=== PATIENT | male | born 1960 | race Caucasian/White ===

== ENCOUNTER 2021-04-07 23:17 | Inpatient (IN) | payer OTHER ==
[~2021-04-07] VITALS: Ht 180.3 cm; Wt 64.9 kg
[2021-04-07] MEDS ORDERED: HEPARIN SODIUM (PORCINE) 5000 UNITS/ML 1ML VIAL IV ONE (23:45)
[2021-04-07] MEDS ORDERED: NITROGLYCERIN 0.4 MG SL TAB SL ONE (23:45)
[2021-04-07 23:51] LABS: Basophils # (auto) 0.1 10 ^3/uL (0-0.2); Basophils % (auto) 0.9 % (0.0-2.0); Eosinophils # (auto) 0.1 10 ^3/uL (0-0.8); Eosinophils % (auto) 0.6 % (0.0-7.0); Hematocrit 44.5 % (41.0-53.0); Hemoglobin 14.9 g/dL (13.5-17.5); Lymphocytes # (auto) 2.7 10 ^3/uL (0.4-5.4); Lymphocytes % (auto) 18.2 % (10.0-50.0); Mean Corpuscular Hemoglobin 29.9 pg (28.0-32.0); Mean Corpuscular Hgb Conc. 33.6 g/dL (32.0-36.0); Monocytes % (auto) 6.4 % (0.0-12.0); Neutrophils % (auto) 73.9 % (37.0-80.0); Red Cell Distribution Width 14.2 % (11.8-14.3); White Blood Cell 14.9 10^3/uL (4.4-10.8)
[2021-04-08] VITALS (11 sets, daily range): BP systolic 87–105; BP diastolic 54–75
[2021-04-08] MEDS ORDERED: fentaNYL CITRATE 100 MCG/2 ML VL ONE (00:07)
[2021-04-08] MEDS ORDERED: HEPARIN SODIUM (PORCINE) 5000 UNITS/ML 1ML VIAL ONE (00:07)
[2021-04-08] MEDS ORDERED: SODIUM CHL 0.9% 50 ML ONE (00:07)
[2021-04-08] MEDS ORDERED: VERAPAMIL 2.5MG/ML INJ 2ML VIAL IV ONE (00:07)
[2021-04-08] MEDS ORDERED: MIDAZOLAM HCL 2MG/2ML 2ml VIAL (1mg/ml) ONE (00:07)
[2021-04-08] MEDS ORDERED: ANGIOMAX 250 MG VIAL IV ONE (00:07)
[2021-04-08] MEDS ORDERED: IODIXANOL 320MG/ML 100ML BTL IV ONE (00:07)
[2021-04-08] MEDS ORDERED: LIDOCAINE 2%HCL (LOCAL ANESTH.) INJ 20ML MDV ONE (00:08)
[2021-04-08 00:10] LABS: Albumin 3.6 g/dL (3.4-5.0); Magnesium 2.8 mg/dL (1.6-2.6); Potassium 4.2 mmol/L (3.5-5.1)
[2021-04-08 00:13] LABS: INR 1.13 (0.9-1.15)
[2021-04-08 00:18] LABS: BUN/Creatinine Ratio 18.6; Bilirubin, Total 0.3 mg/dL (0.2-1.0); Total Protein 7.2 g/dL (6.4-8.2)
[2021-04-08] MEDS ORDERED: ATROPINE SULF 1 MG/10ml SYR ONE (00:51)
[2021-04-08] MEDS ORDERED: TICAGRELOR 90 MG TAB ONE (00:54)
[2021-04-08] MEDS ORDERED: MORPHINE SULFATE 4 MG/ML SYR/VIAL IV PRN (02:00)
[2021-04-08] MEDS ORDERED: SOD CHL 0.45% 1,000 ML IV ONE (02:00)
[2021-04-08] MEDS ORDERED: NITROGLYCERIN 0.4 MG SL TAB SL PRN ×2 (02:00)
[2021-04-08] MEDS ORDERED: ACETAMINOPHEN 500 MG TAB PO PRN (02:00)
[2021-04-08] MEDS ORDERED: HYDROcodone-ACET 5/325MG TAB PO PRN (02:00)
[2021-04-08] MEDS ORDERED: MORPHINE SULFATE INJECTION 2 MG/ML SYRG IV PRN ×2 (02:00)
[2021-04-08] MEDS ORDERED: ALPRAZolam 0.25 MG TAB PO PRN (02:00)
[2021-04-08] MEDS ORDERED: IBU600T PO (05:07)
[2021-04-08] MEDS ORDERED: SAW160TA PO (05:07)
[2021-04-08] MEDS ORDERED: OMEG300C7 OR ×2 (05:09→05:10)
[2021-04-08] MEDS: MAGNESIUM SULFATE 1GM/100ML 100 ML IV SCH ×2 (08:00→10:52)
[2021-04-08 09:32] LABS: Basophils # (auto) 0.1 10 ^3/uL (0-0.2); Basophils % (auto) 0.8 % (0.0-2.0); Eosinophils # (auto) 0 10 ^3/uL (0-0.8); Eosinophils % (auto) 0.4 % (0.0-7.0); Hematocrit 42.5 % (41.0-53.0); Hemoglobin 14.2 g/dL (13.5-17.5); Mean Corpuscular Hemoglobin 29.7 pg (28.0-32.0); Mean Corpuscular Hgb Conc. 33.4 g/dL (32.0-36.0); Mean Corpuscular Volume 88.8 fL (80.0-100.0); Monocytes # (auto) 0.9 10 ^3/uL (0-1.3); Neutrophils # (auto) 8.6 10 ^3/uL (1.6-8.6); Neutrophils % (auto) 73.8 % (37.0-80.0); Nucleated Red Blood Cells % 0.1 %; Red Blood Cells 4.79 10^6/uL (4.5-5.90); Red Cell Distribution Width 13.8 % (11.8-14.3); White Blood Cell 11.6 10^3/uL (4.4-10.8)
[2021-04-08 09:51] LABS: Potassium 4.2 mmol/L (3.5-5.1)
[2021-04-08] MEDS: CARVEDILOL 3.125 MG TAB PO SCH ×2 (10:00→22:00)
[2021-04-08] MEDS ORDERED: SACUBITRIL-VALSARTAN 24mg/26mg TAB PO SCH (10:00)
[2021-04-08] MEDS: NICOTINE 14 MG/24HR TOPICAL PATCH TD SCH (10:00)
[2021-04-08] MEDS ORDERED: ATORVASTATIN 20 MG TAB PO SCH (10:00)
[2021-04-08 10:05] LABS: Albumin 2.9 g/dL (3.4-5.0); BUN/Creatinine Ratio 18.1; Bilirubin, Total 0.6 mg/dL (0.2-1.0); Calcium 8.5 mg/dL (8.5-10.1); Total Protein 5.7 g/dL (6.4-8.2)
[2021-04-08 10:37] LABS: Cholesterol 161 mg/dL (< 200); HDL Cholesterol 51 mg/dL (40-59); LDL Cholesterol 102 mg/dL (< 100); Triglycerides 76 mg/dL (< 150)
[2021-04-08] MEDS: ASPirin 81 mg TAB PO SCH (10:39)
[2021-04-08] MEDS: PANTOPRAZOLE 40 MG TAB PO SCH (10:39)
[2021-04-08] MEDS: TICAGRELOR 90 MG TAB PO SCH ×2 (10:39→22:50)
[2021-04-08] MEDS: SACUBITRIL-VALSARTAN 24mg/26mg TAB PO SCH ×2 (10:40→22:00)
[2021-04-08] MEDS ORDERED: MAGNESIUM SULFATE 1GM/100ML 100 ML IV ONE (12:39)
[2021-04-09 05:15] VITALS: BP 105/56
[2021-04-09 09:00] VITALS: BP 111/77
[2021-04-09] MEDS: PANTOPRAZOLE 40 MG TAB PO SCH (10:00)
[2021-04-09] MEDS ORDERED: ZETIA 10 MG PO SCH (10:00)
[2021-04-09] MEDS: SACUBITRIL-VALSARTAN 24mg/26mg TAB PO SCH ×2 (10:00→22:00)
[2021-04-09] MEDS: NICOTINE 14 MG/24HR TOPICAL PATCH TD SCH (10:00)
[2021-04-09] MEDS: TICAGRELOR 90 MG TAB PO SCH ×2 (10:00→22:23)
[2021-04-09] MEDS: ASPirin 81 mg TAB PO SCH (10:00)
[2021-04-09] MEDS: CARVEDILOL 3.125 MG TAB PO SCH ×2 (10:00→22:28)
[2021-04-09 12:30] VITALS: BP 111/80
[2021-04-09 17:00] VITALS: BP 111/81
[2021-04-09 22:00] VITALS: BP 109/74
[2021-04-10 05:00] VITALS: BP 118/84
[2021-04-10 09:00] VITALS: BP 122/84
[2021-04-10] MEDS: ASPirin 81 mg TAB PO SCH (09:00)
[2021-04-10] MEDS: TICAGRELOR 90 MG TAB PO SCH ×2 (09:00→22:06)
[2021-04-10] MEDS: CARVEDILOL 3.125 MG TAB PO SCH ×2 (09:01→22:06)
[2021-04-10] MEDS: SACUBITRIL-VALSARTAN 24mg/26mg TAB PO SCH ×2 (09:01→22:00)
[2021-04-10] MEDS: PANTOPRAZOLE 40 MG TAB PO SCH (09:02)
[2021-04-10] MEDS: NICOTINE 14 MG/24HR TOPICAL PATCH TD SCH (09:02)
[2021-04-10 13:00] VITALS: BP 111/80
[2021-04-10] MEDS ORDERED: NITR0.4S29 SL (13:24)
[2021-04-10] MEDS ORDERED: CAR3125T PO (13:24)
[2021-04-10] MEDS ORDERED: SACU1TAB PO (13:24)
[2021-04-10] MEDS ORDERED: NICO14DI9 TD (13:24)
[2021-04-10] MEDS ORDERED: TICA90TA PO (13:24)
[2021-04-10] MEDS ORDERED: PANT40T PO (13:24)
[2021-04-10] MEDS ORDERED: ASPI1TAB20 PO (13:24)
[2021-04-10] MEDS ORDERED: ALIR75IN2 SC (13:26)
[2021-04-10] MEDS ORDERED: EZET10TA22 PO (13:26)
[2021-04-10 17:00] VITALS: BP 107/75
[2021-04-10 22:00] VITALS: BP 108/79
[2021-04-11 05:00] VITALS: BP 103/79
[2021-04-11 09:16] VITALS: BP 112/81
[2021-04-11] MEDS: SACUBITRIL-VALSARTAN 24mg/26mg TAB PO SCH (10:00)
[2021-04-11] MEDS: CARVEDILOL 3.125 MG TAB PO SCH (10:00)
[2021-04-11] MEDS: TICAGRELOR 90 MG TAB PO SCH (10:00)
[2021-04-11] MEDS: ASPirin 81 mg TAB PO SCH (10:00)
[2021-04-11] MEDS: NICOTINE 14 MG/24HR TOPICAL PATCH TD SCH (10:00)
[2021-04-11] MEDS: PANTOPRAZOLE 40 MG TAB PO SCH (10:00)
[2021-04-11 13:20] VITALS: BP 120/71
[2021-04-11] MEDS ORDERED: CLOP75TA70 PO (13:25)
[2021-04-11] MEDS ORDERED: OMEG300C7 OR (13:38)
[2021-04-11] MEDS ORDERED: CLOPIDOGREL BISULFATE 75 MG TAB PO ONE (13:45)
[2021-04-11 16:37] VITALS: BP 119/84
[2021-04-11 19:50] VITALS: BP 119/84
[2021-04-12] MEDS ORDERED: ZETIA 10 MG PO SCH (10:00)
== END 2021-04-11 20:30 | disposition home or self-care (01) | DRG 246 ==
LOC: ER 23:17 → EDBD 23:17 → TELE-WESTW 04-08 01:50
PROVIDERS: ADMIT Internal Medicine; ATTEND Internal Medicine
PROC: 027136Z Dilation of Coronary Artery, Two Arteries with Three Drug-eluting Intraluminal Devices, Percutaneous Approach (ICD-10-PCS; principal; 2021-04-08)
PROC: 4A023N7 Measurement of Cardiac Sampling and Pressure, Left Heart, Percutaneous Approach (ICD-10-PCS; 2021-04-08)
PROC: B240ZZ3 Ultrasonography of Single Coronary Artery, Intravascular (ICD-10-PCS; 2021-04-08)
PROC: B2111ZZ Fluoroscopy of Multiple Coronary Arteries using Low Osmolar Contrast (ICD-10-PCS; 2021-04-08)
PROC: B2151ZZ Fluoroscopy of Left Heart using Low Osmolar Contrast (ICD-10-PCS; 2021-04-08)
DX: I21.3 ST elevation (STEMI) myocardial infarction of unspecified site (principal); I50.21 Acute systolic (congestive) heart failure; I47.2 Ventricular tachycardia; E78.5 Hyperlipidemia, unspecified; F12.90 Cannabis use, unspecified, uncomplicated; F17.210 Nicotine dependence, cigarettes, uncomplicated; I25.5 Ischemic cardiomyopathy; I11.0 Hypertensive heart disease with heart failure; Z20.822 Contact with and (suspected) exposure to COVID-19; J44.9 Chronic obstructive pulmonary disease, unspecified; Z79.02 Long term (current) use of antithrombotics/antiplatelets; Z82.0 Family history of epilepsy and other diseases of the nervous system; Z82.49 Family history of ischemic heart disease and other diseases of the circulatory system; Z88.8 Allergy status to other drugs, medicaments and biological substances
CPT/HCPCS: 36415; 71045; 80053; 80061; 82565; 83036; 83735; 83880; 84484; 85025; 85610; 86850; 86900; 86901; 87426; 93005; 93306; 99152; 99153; 99291; C1874; C1887; G0378; J2250; Q9967

== ENCOUNTER 2021-04-21 03:52 | Emergency (ER) | payer OTHER ==
[~2021-04-21] VITALS: Ht 182.9 cm; Wt 68.0 kg
[~2021-04-21 03:52] MED LIST: ASPI1TAB20 PO; CAR3125T PO; CLOP75TA70 PO; EZET10TA22 PO; NICO14DI9 TD; NITR0.4S29 SL; OMEG300C7 OR; PANT40T PO; SACU1TAB PO; SAW160TA PO
[2021-04-21] MEDS ORDERED: SODIUM CHLORIDE 0.9% 1,000 ML IV ONE (04:00)
[2021-04-21 05:11] LABS: Basophils # (auto) 0.1 10 ^3/uL (0-0.2); Basophils % (auto) 1.2 % (0.0-2.0); Eosinophils # (auto) 0.2 10 ^3/uL (0-0.8); Eosinophils % (auto) 1.8 % (0.0-7.0); Hematocrit 45.3 % (41.0-53.0); Hemoglobin 15.1 g/dL (13.5-17.5); Lymphocytes # (auto) 2.8 10 ^3/uL (0.4-5.4); Lymphocytes % (auto) 34.4 % (10.0-50.0); Mean Corpuscular Hemoglobin 29.5 pg (28.0-32.0); Mean Corpuscular Hgb Conc. 33.3 g/dL (32.0-36.0); Mean Corpuscular Volume 88.5 fL (80.0-100.0); Monocytes # (auto) 0.7 10 ^3/uL (0-1.3); Monocytes % (auto) 8.6 % (0.0-12.0); Neutrophils # (auto) 4.4 10 ^3/uL (1.6-8.6); Nucleated Red Blood Cells % 0.1 %; Red Blood Cells 5.12 10^6/uL (4.5-5.90); Red Cell Distribution Width 13.8 % (11.8-14.3); White Blood Cell 8.2 10^3/uL (4.4-10.8)
[2021-04-21 05:14] LABS: INR 1.11 (0.9-1.15); Partial Thromboplastin Time 24.9 sec (23.6-33.0)
[2021-04-21 05:26] LABS: Albumin 3.2 g/dL (3.4-5.0); Calcium 8.5 mg/dL (8.5-10.1); Potassium 4.6 mmol/L (3.5-5.1)
[2021-04-21 05:34] LABS: BUN/Creatinine Ratio 17.6; Bilirubin, Total 0.4 mg/dL (0.2-1.0); Total Protein 6.4 g/dL (6.4-8.2)
[2021-04-21 08:56] VITALS: BP 124/87
== END 2021-04-21 13:00 | disposition home or self-care (01) ==
LOC: EDBD 03:52 → ER 03:52
DX: I95.9 Hypotension, unspecified (principal); F17.210 Nicotine dependence, cigarettes, uncomplicated; F12.10 Cannabis abuse, uncomplicated; Z88.6 Allergy status to analgesic agent; Z88.8 Allergy status to other drugs, medicaments and biological substances; Z20.822 Contact with and (suspected) exposure to COVID-19
CPT/HCPCS: 36415; 70450; 72125; 80053; 84484; 85025; 85610; 85730; 87426; 93005

== ENCOUNTER → 2021-07-07 | Outpatient (CLI) | payer MEDICAID ==
[2021-07-07 10:57] LABS: Basophils # (auto) 0.1 10 ^3/uL (0-0.2); Basophils % (auto) 1.6 % (0.0-2.0); Eosinophils # (auto) 0.1 10 ^3/uL (0-0.8); Eosinophils % (auto) 2.1 % (0.0-7.0); Hematocrit 44.1 % (41.0-53.0); Hemoglobin 15.2 g/dL (13.5-17.5); Lymphocytes # (auto) 2.4 10 ^3/uL (0.4-5.4); Lymphocytes % (auto) 36.3 % (10.0-50.0); Mean Corpuscular Hemoglobin 30.1 pg (28.0-32.0); Mean Corpuscular Hgb Conc. 34.5 g/dL (32.0-36.0); Mean Corpuscular Volume 87.2 fL (80.0-100.0); Monocytes # (auto) 0.6 10 ^3/uL (0-1.3); Monocytes % (auto) 9.7 % (0.0-12.0); Neutrophils # (auto) 3.3 10 ^3/uL (1.6-8.6); Neutrophils % (auto) 50.3 % (37.0-80.0); Nucleated Red Blood Cells % 0.1 %; Red Blood Cells 5.06 10^6/uL (4.5-5.90); Red Cell Distribution Width 14.4 % (11.8-14.3); White Blood Cell 6.5 10^3/uL (4.4-10.8)
[2021-07-07 11:01] LABS: Free T3 3.94 pg/mL (2.3-4.2); Free T4 (Free Thyroxine) 1.23 ng/dL (0.89-1.76)
[2021-07-07 12:59] LABS: BUN/Creatinine Ratio 18.9; Potassium 4.6 mmol/L (3.5-5.1)
[2021-07-07 13:00] LABS: Calcium 9.7 mg/dL (8.5-10.1); Total Protein 7.4 g/dL (6.4-8.2)
[2021-07-07 13:14] LABS: Bilirubin, Total 0.5 mg/dL (0.2-1.0)
== END | disposition home or self-care (01) ==
LOC: LAB 07:01
PROVIDERS: ATTEND Internal Medicine
DX: I50.22 Chronic systolic (congestive) heart failure (principal); I95.2 Hypotension due to drugs
CPT/HCPCS: 36415; 80053; 80061; 84403; 84439; 84443; 84481; 85025

== ENCOUNTER → 2021-07-20 | Outpatient (CLI) | payer MEDICAID ==
[~2021-07-20] VITALS: Ht 180.3 cm; Wt 72.6 kg
[~2021-07-20] MED LIST changes: +ADENOSINE 61 MG in GIVE UN-DILUTED 0 ML IV STA
== END | disposition home or self-care (01) ==
LOC: XY 08:06
PROVIDERS: ATTEND Internal Medicine
DX: I11.0 Hypertensive heart disease with heart failure (principal); I50.22 Chronic systolic (congestive) heart failure; I42.8 Other cardiomyopathies; I21.3 ST elevation (STEMI) myocardial infarction of unspecified site; Z95.5 Presence of coronary angioplasty implant and graft
CPT/HCPCS: 78452; 93017; A9500; J0153

== ENCOUNTER → 2021-07-25 | Outpatient (CLI) | payer MEDICAID ==
[~2021-07-25] MED LIST changes: -ADENOSINE 61 MG in GIVE UN-DILUTED 0 ML IV STA
== END | disposition home or self-care (01) ==
LOC: XYW 08:41
PROVIDERS: ATTEND Internal Medicine
DX: I07.1 Rheumatic tricuspid insufficiency (principal)
CPT/HCPCS: 93306

== ENCOUNTER → 2021-08-15 | Outpatient (CLI) | payer MEDICAID | END | disposition home or self-care (01) | LOC: LAB 06:38 | PROVIDERS: ATTEND Internal Medicine | DX: Z12.11 Encounter for screening for malignant neoplasm of colon (principal); Z00.00 Encounter for general adult medical examination without abnormal findings | CPT/HCPCS: 84153 ==

== ENCOUNTER → 2021-09-08 | Outpatient (CLI) | payer MEDICAID ==
[2021-09-08 07:39] LABS: Cholesterol 238 mg/dL (< 200); Triglycerides 123 mg/dL (< 150)
[2021-09-08 07:41] LABS: HDL Cholesterol 59 mg/dL (40-59); LDL Cholesterol 149 mg/dL (< 100)
== END | disposition home or self-care (01) ==
LOC: LAB 06:35
PROVIDERS: ATTEND Internal Medicine
DX: I25.10 Atherosclerotic heart disease of native coronary artery without angina pectoris (principal); E78.5 Hyperlipidemia, unspecified
CPT/HCPCS: 36415; 80061

== ENCOUNTER → 2021-10-26 | Outpatient (CLI) | payer MEDICAID ==
[2021-10-26 08:45] LABS: Cholesterol 185 mg/dL (< 200); HDL Cholesterol 68 mg/dL (40-59); LDL Cholesterol 100 mg/dL (< 100); Triglycerides 135 mg/dL (< 150)
== END | disposition home or self-care (01) ==
LOC: LAB 06:45
PROVIDERS: ATTEND Internal Medicine
DX: I10 Essential (primary) hypertension (principal)
CPT/HCPCS: 36415; 80061

== ENCOUNTER → 2021-11-29 | Outpatient (CLI) | payer MEDICAID ==
[~2021-11-29] VITALS: Ht 180.3 cm; Wt 78.0 kg
[~2021-11-29] MED LIST changes: +ADENOSINE 66 MG in GIVE UN-DILUTED 0 ML IV STA
== END | disposition home or self-care (01) ==
LOC: XY 08:20
PROVIDERS: ATTEND Internal Medicine
DX: R07.89 Other chest pain (principal); I25.2 Old myocardial infarction; I25.5 Ischemic cardiomyopathy; I25.10 Atherosclerotic heart disease of native coronary artery without angina pectoris; E78.5 Hyperlipidemia, unspecified
CPT/HCPCS: 78452; 93017; A9500; J0153

== ENCOUNTER → 2022-01-29 | Outpatient (CLI) | payer MEDICAID ==
[~2022-01-29] MED LIST changes: -ADENOSINE 66 MG in GIVE UN-DILUTED 0 ML IV STA
== END | disposition home or self-care (01) ==
LOC: XYW 07:32
PROVIDERS: ATTEND Internal Medicine
DX: I34.0 Nonrheumatic mitral (valve) insufficiency (principal); I25.10 Atherosclerotic heart disease of native coronary artery without angina pectoris
CPT/HCPCS: 93306

== ENCOUNTER → 2022-01-29 | Outpatient (CLI) | payer MEDICAID ==
[2022-01-29 08:37] LABS: Cholesterol 182 mg/dL (< 200); Creatine Kinase IFCC 86 U/L (39-308); HDL Cholesterol 58 mg/dL (40-59); LDL Cholesterol 118 mg/dL (< 100); Triglycerides 104 mg/dL (< 150)
== END | disposition home or self-care (01) ==
LOC: LAB 06:33
PROVIDERS: ATTEND Internal Medicine
DX: I10 Essential (primary) hypertension (principal); E78.5 Hyperlipidemia, unspecified
CPT/HCPCS: 36415; 80061; 82550; 85652

== ENCOUNTER → 2022-02-12 | Outpatient (CLI) | payer MEDICAID | END | disposition home or self-care (01) | LOC: LAB 06:45 | PROVIDERS: ATTEND Internal Medicine | DX: N28.1 Cyst of kidney, acquired (principal) | CPT/HCPCS: 36415; 82565; 84520 ==

== ENCOUNTER → 2022-04-03 | Outpatient (CLI) | payer MEDICAID ==
[2022-04-03 07:09] LABS: Basophils # (auto) 0.1 10 ^3/uL (0-0.2); Basophils % (auto) 1.3 % (0.0-2.0); Eosinophils # (auto) 0.1 10 ^3/uL (0-0.8); Eosinophils % (auto) 1.7 % (0.0-7.0); Hematocrit 46.1 % (41.0-53.0); Hemoglobin 15.5 g/dL (13.5-17.5); Lymphocytes # (auto) 3.1 10 ^3/uL (0.4-5.4); Lymphocytes % (auto) 45.8 % (10.0-50.0); Mean Corpuscular Hemoglobin 28.7 pg (28.0-32.0); Mean Corpuscular Hgb Conc. 33.5 g/dL (32.0-36.0); Mean Corpuscular Volume 85.6 fL (80.0-100.0); Monocytes # (auto) 0.5 10 ^3/uL (0-1.3); Monocytes % (auto) 7.3 % (0.0-12.0); Neutrophils % (auto) 43.9 % (37.0-80.0); Nucleated Red Blood Cells % 0.1 %; Red Blood Cells 5.39 10^6/uL (4.5-5.90); Red Cell Distribution Width 13.7 % (11.8-14.3); White Blood Cell 6.7 10^3/uL (4.4-10.8)
[2022-04-03 07:51] LABS: Albumin 3.7 g/dL (3.4-5.0); Calcium 9.4 mg/dL (8.5-10.1); Potassium 3.8 mmol/L (3.5-5.1); Total Protein 7.4 g/dL (6.4-8.2)
[2022-04-03 07:53] LABS: Bilirubin, Total 0.5 mg/dL (0.2-1.0)
[2022-04-03 08:50] LABS: Free T4 (Free Thyroxine) 1.37 ng/dL (0.89-1.76); Prostate Specific Antigen 0.99 ng/mL (0.0-4.0)
[2022-04-03 08:51] LABS: Free T3 3.91 pg/mL (2.3-4.2)
== END | disposition home or self-care (01) ==
LOC: LAB 06:45
PROVIDERS: ATTEND Urology
DX: Z13.220 Encounter for screening for lipoid disorders (principal); E07.89 Other specified disorders of thyroid; E34.9 Endocrine disorder, unspecified; E29.1 Testicular hypofunction; E53.9 Vitamin B deficiency, unspecified; E55.9 Vitamin D deficiency, unspecified; R97.20 Elevated prostate specific antigen [PSA]
CPT/HCPCS: 36415; 80053; 80061; 82306; 82607; 82670; 84153; 84402; 84403; 84439; 84443; 84481; 85025; 86376

== ENCOUNTER → 2022-07-03 | Outpatient (CLI) | payer MEDICAID ==
[2022-07-03 07:45] LABS: Cholesterol 172 mg/dL (< 200); HDL Cholesterol 61 mg/dL (40-59); LDL Cholesterol 98 mg/dL (< 100); Triglycerides 141 mg/dL (< 150)
== END | disposition home or self-care (01) ==
LOC: LAB 06:59
PROVIDERS: ATTEND Internal Medicine
DX: Z12.11 Encounter for screening for malignant neoplasm of colon (principal); J44.9 Chronic obstructive pulmonary disease, unspecified; E78.5 Hyperlipidemia, unspecified
CPT/HCPCS: 36415; 80061; 82306

== ENCOUNTER → 2022-07-20 | Outpatient (CLI) | payer MEDICAID ==
[2022-07-20 07:29] LABS: Potassium 4.5 mmol/L (3.5-5.1)
[2022-07-20 07:42] LABS: Albumin 4.1 g/dL (3.4-5.0); BUN/Creatinine Ratio 16.5; Bilirubin, Total 0.7 mg/dL (0.2-1.0); Calcium 9.6 mg/dL (8.5-10.1); Total Protein 7.5 g/dL (6.4-8.2)
== END | disposition home or self-care (01) ==
LOC: LAB 06:24
PROVIDERS: ATTEND Internal Medicine
DX: I10 Essential (primary) hypertension (principal); E78.5 Hyperlipidemia, unspecified
CPT/HCPCS: 36415; 80053; 80061

== ENCOUNTER → 2022-08-16 | Outpatient (CLI) | payer MEDICAID ==
[~2022-08-16] VITALS: Ht 180.3 cm; Wt 77.1 kg
[~2022-08-16] MED LIST changes: +ADENOSINE 65 MG in GIVE UN-DILUTED 0 ML IV ONE
== END | disposition home or self-care (01) ==
LOC: XYW 07:09
PROVIDERS: ATTEND Internal Medicine
DX: R07.9 Chest pain, unspecified (principal)
CPT/HCPCS: 78452; 93017; A9500; J0153

== ENCOUNTER → 2022-08-27 | Outpatient (CLI) | payer MEDICAID ==
[~2022-08-27] MED LIST changes: -ADENOSINE 65 MG in GIVE UN-DILUTED 0 ML IV ONE
[2022-08-27 06:35] LABS: Basophils # (auto) 0.1 10 ^3/uL (0-0.2); Eosinophils # (auto) 0.1 10 ^3/uL (0-0.8); Eosinophils % (auto) 1.1 % (0.0-7.0); Hematocrit 44.8 % (41.0-53.0); Hemoglobin 15.6 g/dL (13.5-17.5); Lymphocytes # (auto) 2.7 10 ^3/uL (0.4-5.4); Lymphocytes % (auto) 36.9 % (10.0-50.0); Mean Corpuscular Hemoglobin 28.9 pg (28.0-32.0); Mean Corpuscular Hgb Conc. 34.9 g/dL (32.0-36.0); Mean Corpuscular Volume 82.6 fL (80.0-100.0); Monocytes # (auto) 0.6 10 ^3/uL (0-1.3); Nucleated Red Blood Cells % 0.1 %; Red Blood Cells 5.42 10^6/uL (4.5-5.90); Red Cell Distribution Width 14.1 % (11.8-14.3); White Blood Cell 7.5 10^3/uL (4.4-10.8)
[2022-08-27 07:13] LABS: Potassium 4.2 mmol/L (3.5-5.1)
[2022-08-27 07:33] LABS: Albumin 3.7 g/dL (3.4-5.0); BUN/Creatinine Ratio 15.6 (10.0-20.0); Bilirubin, Total 0.5 mg/dL (0.2-1.0); Calcium 9.7 mg/dL (8.5-10.1); Total Protein 7.4 g/dL (6.4-8.2)
[2022-08-27 08:27] LABS: Free T3 3.75 pg/mL (2.3-4.2); Free T4 (Free Thyroxine) 1.22 ng/dL (0.89-1.76)
== END | disposition home or self-care (01) ==
LOC: LAB 06:08
PROVIDERS: ATTEND Internal Medicine
DX: I10 Essential (primary) hypertension (principal); I25.10 Atherosclerotic heart disease of native coronary artery without angina pectoris
CPT/HCPCS: 36415; 80053; 80061; 84439; 84443; 84481; 85025

== ENCOUNTER 2022-12-04 10:40 | Emergency (ER) | payer MEDICAID ==
[~2022-12-04] VITALS: Ht 180.3 cm; Wt 80.9 kg
[2022-12-04 11:10] LABS: Basophils # (auto) 0.1 10 ^3/uL (0-0.2); Basophils % (auto) 1.2 % (0.0-2.0); Eosinophils # (auto) 0.1 10 ^3/uL (0-0.8); Eosinophils % (auto) 0.9 % (0.0-7.0); Hemoglobin 15.5 g/dL (13.5-17.5); Lymphocytes # (auto) 2.1 10 ^3/uL (0.4-5.4); Lymphocytes % (auto) 33.3 % (10.0-50.0); Mean Corpuscular Hemoglobin 28.7 pg (28.0-32.0); Mean Corpuscular Hgb Conc. 33.6 g/dL (32.0-36.0); Mean Corpuscular Volume 85.4 fL (80.0-100.0); Monocytes # (auto) 0.5 10 ^3/uL (0-1.3); Monocytes % (auto) 7.8 % (0.0-12.0); Neutrophils # (auto) 3.6 10 ^3/uL (1.6-8.6); Neutrophils % (auto) 56.8 % (37.0-80.0); Nucleated Red Blood Cells % 0.2 %; Red Blood Cells 5.39 10^6/uL (4.5-5.90); Red Cell Distribution Width 14.1 % (11.8-14.3); White Blood Cell 6.4 10^3/uL (4.4-10.8)
[2022-12-04 11:31] LABS: Calcium 9.7 mg/dL (8.5-10.1); Potassium 4.1 mmol/L (3.5-5.1)
[2022-12-04 11:44] LABS: BUN/Creatinine Ratio 11.6 (10.0-20.0); Bilirubin, Total 0.9 mg/dL (0.2-1.0); Magnesium 2.5 mg/dL (1.6-2.6); Total Protein 7.3 g/dL (6.4-8.2)
[2022-12-04] MEDS ORDERED: PANTOPRAZOLE 40 MG/10 ML VIAL INJ IV ONE (12:30)
[2022-12-04] MEDS ORDERED: SODIUM CHLORIDE 0.9% 1,000 ML IV ONE (12:30)
[2022-12-04] MEDS ORDERED: ACETAMINOPHEN 325 MG TAB PO ONE ×2 (12:30)
[2022-12-04] MEDS ORDERED: ONDANSETRON HCL 4 MG/2 ML VIAL IV ONE (12:30)
[2022-12-04] MEDS ORDERED: MORPHINE SULFATE 4 MG/ML SYR/VIAL IV ONE (12:30)
[2022-12-04 12:43] VITALS: PULSE 74; RESP 16; O2SAT 99
[2022-12-04 13:01] LABS: INR 1.1 (0.9-1.15); Partial Thromboplastin Time 30.7 SEC (24.5-34.5)
[2022-12-04 14:29] VITALS: BP 118/84; PULSE 88; RESP 15; TEMP 98; O2SAT 96
== END 2022-12-04 14:31 | disposition left against medical advice (07) ==
LOC: ER 10:40 → EDBD 10:40 → ER 14:31
DX: R07.89 Other chest pain (principal); J44.9 Chronic obstructive pulmonary disease, unspecified; E78.5 Hyperlipidemia, unspecified; I25.2 Old myocardial infarction; Z88.5 Allergy status to narcotic agent; Z88.8 Allergy status to other drugs, medicaments and biological substances; Z79.82 Long term (current) use of aspirin; Z79.899 Other long term (current) drug therapy
CPT/HCPCS: 36415; 71045; 80053; 83735; 83880; 84443; 84484; 85025; 85379; 85610; 85730; 93005; 96361; 96374; 99285; C9113; J7030

== ENCOUNTER → 2023-02-22 | Outpatient (CLI) | payer MEDICAID ==
[2023-02-22 07:06] LABS: Triglycerides 135 mg/dL (< 150)
[2023-02-22 07:07] LABS: LDL Cholesterol 103 mg/dL (< 100)
[2023-02-22 07:08] LABS: Cholesterol 180 mg/dL (< 200); HDL Cholesterol 53 mg/dL (40-59)
== END | disposition home or self-care (01) ==
LOC: LAB 06:12
PROVIDERS: ATTEND Internal Medicine
DX: E78.5 Hyperlipidemia, unspecified (principal)
CPT/HCPCS: 36415; 80061

== ENCOUNTER → 2023-09-19 | Outpatient (CLI) | payer OTHER, MEDICAID ==
[~2023-09-19] MED LIST changes: -CAR3125T PO; +CARV-214 PO
== END | disposition home or self-care (01) ==
LOC: XYW 14:24
PROVIDERS: ATTEND Internal Medicine
DX: R06.02 Shortness of breath (principal)
CPT/HCPCS: 93306

== ENCOUNTER → 2024-03-23 | Outpatient (CLI) | payer MEDICAID ==
[2024-03-23 07:33] LABS: Basophils # (auto) 0.1 10 ^3/uL (0-0.2); Basophils % (auto) 1.1 % (0.0-2.0); Eosinophils # (auto) 0.2 10 ^3/uL (0-0.8); Eosinophils % (auto) 2.6 % (0.0-7.0); Hematocrit 45.7 % (41.0-53.0); Hemoglobin 15.4 g/dL (13.5-17.5); Lymphocytes # (auto) 2.2 10 ^3/uL (0.4-5.4); Lymphocytes % (auto) 38.3 % (10.0-50.0); Mean Corpuscular Hemoglobin 29.2 pg (28.0-32.0); Mean Corpuscular Hgb Conc. 33.8 g/dL (32.0-36.0); Mean Corpuscular Volume 86.3 fL (80.0-100.0); Monocytes # (auto) 0.5 10 ^3/uL (0-1.3); Monocytes % (auto) 8.5 % (0.0-12.0); Neutrophils # (auto) 2.9 10 ^3/uL (1.6-8.6); Neutrophils % (auto) 49.5 % (37.0-80.0); Platelet Count (auto) 276 10^3/uL (140-450); Red Blood Cells 5.29 10^6/uL (4.5-5.90); Red Cell Distribution Width 14.8 % (11.8-14.3); White Blood Cell 5.9 10^3/uL (4.4-10.8)
[2024-03-23 08:23] LABS: Alanine Aminotransferase 29 U/L (7-40); Albumin 4.6 g/dL (3.2-4.8); Alkaline Phosphatase 65 U/L (46-116); Anion Gap 7 (5-15); Aspartate Aminotransferase 20 U/L (13-40); BUN/Creatinine Ratio 10.9 (10.0-20.0); Bilirubin, Total 0.6 mg/dL (0.2-1.0); Blood Urea Nitrogen 10 mg/dL (9-23); Calcium 10.6 mg/dL (8.7-10.4); Carbon Dioxide 27 mmol/L (20-31); Chloride 106 mmol/L (98-107); Cholesterol 206 mg/dL (< 200); HDL Cholesterol 60 mg/dL (40-59); LDL Cholesterol 132 mg/dL (< 100); Potassium 4.9 mmol/L (3.5-5.1); Sodium 140 mmol/L (136-145); Total Protein 7.3 g/dL (5.7-8.2); Triglycerides 128 mg/dL (< 150)
[2024-03-23 08:32] LABS: Glucose 112 mg/dL (74-106)
== END | disposition home or self-care (01) ==
LOC: LAB 06:22
PROVIDERS: ATTEND Internal Medicine
DX: J44.9 Chronic obstructive pulmonary disease, unspecified (principal); E78.5 Hyperlipidemia, unspecified
CPT/HCPCS: 36415; 80053; 80061; 82306; 85025

== ENCOUNTER → 2024-06-22 | Outpatient (CLI) | payer MEDICAID ==
[2024-06-22 10:17] LABS: Calcium 10.5 mg/dL (8.7-10.4)
== END | disposition home or self-care (01) ==
LOC: LAB 06:15
PROVIDERS: ATTEND Internal Medicine
DX: E78.5 Hyperlipidemia, unspecified (principal); E83.52 Hypercalcemia; J44.9 Chronic obstructive pulmonary disease, unspecified
CPT/HCPCS: 36415; 80061; 82310; 83970

== ENCOUNTER → 2024-07-23 | Outpatient (CLI) | payer MEDICAID ==
[~2024-07-23] VITALS: Ht 177.8 cm; Wt 77.6 kg
[2024-07-23] MEDS: REGADENOSON 0.4 MG/5 ML SYRG IV ONE ×2 (10:47)
--- NOTE | 2024-07-23 13:24 | DVHSR ---
APPROVED REPORT Exam: Nuclear Stress Test Indication: Chest pain BMI: 0 Medical History Medical History: COPD, [place], Stents Stress Test Details Stress Test: Pharmacologic stress testing performed using 0.4 mg of regadenoson per 5 mL given IV ov er 10 seconds. HR Resting HR: 78 bpmMax Heart Rate (APMHR): 154.788719 bpm Max HR Achieved: 121 bpmTarget HR (85% APMHR): 130.033674 bpm % of APMHR: 78.57 Recovery HR: 100 bpm BP Resting BP: 133/87 mmHg Recovery BP: 122/82 mmHg ECG Resting ECG: Sinus Rhythm Clinical Reason for Termination: Completed protocol Nurse Comments Received patient from Nuclear Medicine. Patient is A&O x4. Patient is connected to behavioral technician. P IV flushres well. Reviewed POC and patient verbalizes understanding and consents to test. Stress ECG Conclusion poor quality study lvef 68% GI artifact vs remote inferior wall fixed defect/ infarct no ischemia is noted NM EXAM: Myocardial Perfusion REST/STRESS Imaging Protocol: Rest Tc-99m/Stress Tc-99m 1 day Resting Data Rest SPECT myocardial perfusion imaging was performed in supine position 60 minutes following the int ravenous injection of 12.8 mCi of Tc-99m Sestamibi. Time of rest injection: 926 Date: 07/23/2024 Time of rest imagin Date: 07/23/2024 Administration Route: IV Administration Site: Right Hand Pharmacologic Stress Pharmacologic stress test was performed by injecting Regadenoson 0.4 mg IV push followed by the intra venous injection of 36.3 mCi of Tc-99m Sestamibi. Time of stress injection: 104 Date: 07/23/2024 Time of stress imagin Date: 07/23/2024 Administration Route: IV Administration Site: Right Hand Gated Stress SPECT was performed 60 minutes after stress injection. The images were gated to evaluate regional wall motion and calculate left ventricular ejection fracti on. Stress only was performed in the Supine position. Nuclear Conclusion poor quality study lvef 68% GI artifact vs remote inferior wall fixed defect/ infarct no ischemia is noted
== END | disposition home or self-care (01) ==
LOC: XYW 08:51
PROVIDERS: ATTEND Internal Medicine
DX: R07.9 Chest pain, unspecified (principal); J44.9 Chronic obstructive pulmonary disease, unspecified; I25.118 Atherosclerotic heart disease of native coronary artery with other forms of angina pectoris; I10 Essential (primary) hypertension; E78.5 Hyperlipidemia, unspecified; Z88.8 Allergy status to other drugs, medicaments and biological substances
CPT/HCPCS: 78452; 93017; A9500; J2785

== ENCOUNTER → 2024-09-28 | Outpatient (CLI) | payer MEDICAID | END | disposition home or self-care (01) | LOC: LAB 07:39 | PROVIDERS: ATTEND Internal Medicine | DX: Z12.11 Encounter for screening for malignant neoplasm of colon (principal); E78.5 Hyperlipidemia, unspecified; Z00.00 Encounter for general adult medical examination without abnormal findings | CPT/HCPCS: 82270 ==

== ENCOUNTER 2024-10-28 08:41 | Outpatient (CLI) | payer MEDICAID | END 2024-10-28 17:00 | disposition home or self-care (01) | LOC: LAB 08:41 | PROVIDERS: ATTEND Internal Medicine | DX: I10 Essential (primary) hypertension (principal); E78.5 Hyperlipidemia, unspecified; R41.3 Other amnesia | CPT/HCPCS: 36415; 82746; 86780 ==